=== PATIENT | female | born 1990 | race Caucasian/White ===

== ENCOUNTER 2020-02-21 10:22 | Outpatient (REF) | payer BC, SELFPAY ==
--- NOTE | 2020-02-21 09:45 | PAPFT_PTH ---
PATIENT: Joana Beaver LOC: [facility]#:[id number] AGE/SX: 29/F ROOM: RE02/21/[address]: Deidra Crump : 1990 BED: DIS: 02/21/2020 SPEC #: [id number] RECD: 02/22/20 12:49 STATUS: IRIS RELinda #: [id number] ESTHER: 02/21/20 09:[address]: Deidra Crump DEPT: [facility] Cytology RECD BY: Haley Najera ENTERED: 02/22/20 12:50 SP TYPE: PAPFT OTHR DR: Endy Giron Tissues: 1 - CX/ENDOCX FOR PAP SMEARS Procedures: PAP THIN PREP/UVM Screening HPV DNA PROBE Comments: [id number]
== END 2020-02-21 10:42 ==
LOC: NCHCN 10:22
PROVIDERS: PCP Internal Medicine; Visit Provider Nurse Practitioner Family
DX: Z12.4 Encounter for screening for malignant neoplasm of cervix (principal); Z11.51 Encounter for screening for human papillomavirus (HPV)
CPT/HCPCS: 88142; 87624

== ENCOUNTER 2020-03-07 14:35 | Outpatient (REF) | payer BC, SELFPAY ==
[2020-03-10 15:57] LABS: COVID-19 RT-PCR Result NEGATIVE (Negative)
== END 2020-03-07 14:55 ==
LOC: NCHCN 14:35
PROVIDERS: PCP Internal Medicine; Visit Provider Nurse Practitioner Family
DX: Z20.828 Contact with and (suspected) exposure to other viral communicable diseases (principal)
CPT/HCPCS: U0003

== ENCOUNTER 2020-08-29 09:35 | Outpatient (REF) | payer BC, SELFPAY | END 2020-08-29 09:36 | disposition home or self-care (01) | LOC: NCHCN 09:35 | PROVIDERS: PCP Internal Medicine; Visit Provider Nurse Practitioner Family | DX: N89.8 Other specified noninflammatory disorders of vagina (principal) | CPT/HCPCS: 87480; 87510; 87660 ==

== ENCOUNTER 2020-10-07 19:03 | Emergency (ER) | payer BC, SELFPAY ==
[2020-10-07] VITALS (20 sets, daily range): BP systolic 117–142; BP diastolic 60–98; PULSE 59–106; RESP 11–22; TEMP 36.9; O2SAT 95–99
--- NOTE | 2020-10-07 19:00 | RT.EKG_ITS ---
APPROVED REPORT Exam: Resting ECG Reason for Exam: chest pain Patient Location: E HR:88 bpm ECG Measurements Heart Rate 88 AXIS NM 194 P 256 QRSd 118 QRS -165 QT 411 T 54 QTc 498 Conclusion Atrial-ventricular dual-paced complexes...other complexes also detected Incomplete right bundle branch block...QRSd >112, terminal axis(90,270) Nonspecific ST depression...ST <-0.10mV, any [address] elevation, consider lateral injury...ST >0.10mV, I aVL V5 V6 Prolonged QT interval...QTc >495mS Underlying A-V paced rhythm present coupled with possible bigeminy versus junctional incomplete RBBB . One lone PVC. Prolong QT associated with paced rhythm. No STEMI
--- NOTE | 2020-10-07 19:30 | DI.RAD_ITS ---
Exam(s) XR CHEST 2V PA LATERAL EXAM: XR CHEST 2V PA LATERAL CLINICAL HISTORY: right chest pain TECHNIQUE: 2D digital imaging was performed. COMPARISON: No exams were available for comparison FINDINGS: MEDIASTINUM: Normal. HEART: Normal. PULMONARY VASCULATURE: Normal. LUNGS: Clear. PLEURAL SPACE: No pleural effusion or pneumothorax. BONE:Within normal limits for the patient's age. OTHER FINDINGS:Pacing device and leads are in the expected location. IMPRESSION: No acute pulmonary findings. DATA REPOSITORY: RADIATION DOSE DELIVERED:
[2020-10-07] MEDS: ACETAMINOPHEN 1,000 MG/100 ML BTL 400 MG IVPB (20:22)
--- NOTE | 2020-10-07 20:40 | DI.VRAD_ITS ---
PROCEDURE INFORMATION: Exam: XR Chest Exam date and time: 10/07/2020 7:42 PM Age: 30 years old Clinical indication: Right-sided; Patient HX: R sided chest pain TECHNIQUE: Imaging protocol: XR of the chest. Views: 2 views. COMPARISON: CT CHEST FOR PULMONARY EMBOLUS 02/03/2017 6:34 PM FINDINGS: Tubes, catheters and devices: Left chest pacemaker with dual chamber leads in expected position. Lungs: Unremarkable. No consolidation. Pleural spaces: Unremarkable. No pleural effusion. No pneumothorax. Heart/Mediastinum: Unremarkable. No cardiomegaly. Bones/joints: Unremarkable. IMPRESSION: No acute cardiopulmonary process. Dictated and Authenticated by: Sohan Maldonado MD. Ordering:GEETHA De Leon MD
[2020-10-07 20:47] LABS: Abs Immature Grans 0.03 10^3/uL (0.0-0.06); Absolute Basophil Count 0.06 10^3/uL (0.0-0.2); Absolute Eosinophil Count 0.25 10^3/uL (0.0-0.7); Absolute Lymphocyte Count 1.54 10^3/uL (1.2-3.4); Absolute Monocyte Count 0.43 10^3/uL (0.1-0.8); Absolute Neutrophil Count 4.18 10^3/uL (1.2-6.7); Basophils % 0.9; Eosinophils % 3.9; HCT 41.5 % (36.0-46.0); HGB 13.8 g/dL (11.2-15.7); Immature Grans % 0.5; Lymphocytes % 23.7; MCH 29.8 pg (27.0-33.0); MCHC 33.3 % (32.0-36.0); MCV 89.6 fL (80-95); MPV 11.1 fL (8.0-11.0); Monocytes % 6.6; Neutrophils % 64.4; Nucleated RBC 0 %; Platelet Count 301 10^3/uL (130-400); RBC 4.63 10^6/uL (3.93-5.22); RDW 11.9 % (11.7-14.6); RDW-SD 39.1 fL; WBC 6.49 10^3/uL (4.4-10.8)
[2020-10-07 21:01] LABS: ALT 31 U/L (14-59); AST 22 U/L (15-37); Albumin 3.7 g/dL (3.4-5.0); Alkaline Phosphatase 47 U/L (46-116); Anion Gap 11.5 mmol/L (3-11); BUN 9 mg/dL (7-18); Bilirubin, Total 0.2 mg/dL (0.2-1.0); CO2 26.5 mmol/L (21.0-32.0); CREATININE 0.8 mg/dL (0.55-1.02); Chloride 106 mmol/L (98-107); Glucose 86 mg/dL (74-106); Magnesium 2.1 mg/dL (1.8-2.4); Potassium 3.8 mmol/L (3.5-5.1); Sodium 144 mmol/L (136-145); Total Protein 7.5 g/dL (6.4-8.2)
[2020-10-07 21:02] LABS: Troponin I < 0.05 ng/mL (<0.06)
--- NOTE | 2020-10-07 21:34 | W.ED.GENAD ---
Discharge Plan Disposition Patient Disposition: HOME Condition: Stable Discharge Details Clinical Impression: Chest pain Primary Care Provider: Endy Giron ED Provider: Haley Logan Home Meds and New Rx's Prescriptions: No Action desogestrel-ethinyl estradiol [Apri] 1 EACH tablet 1 tab-cap PO DAILY Qty: 3 RF: 2 labetalol 200 MG tablet 200 mg PO BID RF: 0 Discharge Instructions Instructions: Chest Pain (ED) Additional Instructions: You are leaving AGAINST MEDICAL ADVICE, prior to your repeat EKG and troponin, you will be notified if your test is abnormal, I recommend a follow-up up with your traffic sign supervisor first thing on Friday and return immediately should you have any worsening complaints Discharge Data Discharge Date/Time-TO BE ENTERED AT DEPARTURE: 10/07/20 23:35 Medical Decision Making Patient has a heart score of 2, she has 2 - troponins mother she did refuse to stay for the second troponin given the extensive time she been in the emergency room, she technically left AGAINST MEDICAL ADVICE Initially EKG showed possible bigeminy which is curious as her repeat EKG in the absence of any discomfort exhibit normal sinus rhythm Her pacemaker interpretation was sent to [facility] She is currently asymptomatic and feels significantly improved, this was after no additional intervention She has a negative D-dimer, 2 - troponin, repeat EKG normal sinus rhythm, she is aware that she needs to call her traffic sign supervisor on Friday There is no evidence of significant ominous dysrhythmia noted throughout her evaluation she was observed on telemetry throughout this encounter EKG was interpreted by my attending physician, Dr. Alexander please see his documentation She is given very low threshold to return should she have new or worsening complaints Her electrolytes are stable for patient Blood pressure will need to be checked by primary care physician She is alert, oriented, of decisional capacity throughout the entirety of this evaluation Low suspicion for pulmonary embolism given lack of hypoxia and negative D-dimer without tachypnea Chest x-ray without evidence of widened mediastinum any pneumothorax or infiltrate, no obvious cough for patient discomfort noted per radiology interpretation in my review Electrolytes are reassuring, potassium and magnesium within normal limits, 2 - troponin and EKG normal sinus rhythm She will call her traffic sign supervisor on Friday She has already sent the interpretation from her pacemaker to her traffic sign supervisor she experienced during the event Medical Records Medical records reviewed: Yes I reviewed the patient's medical records. Lab Data Lab results reviewed: Yes I reviewed the patient's lab results. HPI General Mode of arrival: ambulatory. Date/Time Provider Initiated Documentation: 10/07/20 19:40. Limitations to Documentation: no limitations. Information obtained by: patient. 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 She states she had an episode yesterday at 530 while she was at rest. She states she was exerting herself all day. She denies any pain or discomfort with. She states episode lasted approximately 30 minutes last evening and then resolved on its own. She states today at 5 and she developed another episode of chest pain in the right side of her chest which radiates down her arm and into her back. She denies any fever or chills. She denies any tobacco use. She denies any history of hypertension or hyperlipidemia. Calf pain or swelling. Denies recent flights, surgeries, long drives. Denies family history of coronary artery disease. Took aspirin prior to arrival, 325. Had some nausea associated with pain that has since resolved. Denies any diaphoresis. Denies illicit drug use. Does not take exogenous hormones. States she has had similar episode in the past, but has been 10+ years. Related Data Home Medications Medication Instructions Recorded Confirmed labetalol 200 mg PO BID 06/11/13 10/07/20 desogestrel-ethinyl estradiol 1 tab-cap PO DAILY #3 pack 11/07/16 10/07/20 [Apri] Allergies Allergy/AdvReac Type Severity Reaction Status Date / Time Penicillins Allergy Unknown Unverified 10/07/20 19:17 General Stated Complaint: Chest Pain TIA: 2 Review of Systems All systems reviewed & are unremarkable except as noted in HPI and below [facility] Surgical History (Updated 01/14/18 @ 14:34 by [employer]) section (~2010) 2014 Family History Mother Long QT syndrome Sister Long QT syndrome Maternal Uncle Liver cancer maternal Cancer of kidney maternal Daughter Down syndrome Thyroid disorder Social History Smoking/Tobacco Use Status: Never Smoking risk assessment performed?: Yes Alcohol Intake: never Drug use: Never Do you feel safe at home: Yes Do you feel safe in your relationship?: Yes Exam Const General: healthy appearing and no acute distress Eyes Sclera: sclerae normal Chest Chest: normal inspection of the chest Resp Effort & Inspection: normal respiratory effort Auscultation: clear to auscultation bilaterally Cardio Rate: regular rate Rhythm: regular rhythm GI Other: No abdominal tenderness Skin General skin exam: no rashes or lesions noted Neuro General: patient alert, patient oriented x3 and CN's II-XI intact bilaterally Cranial Nerves: PERRL Gait: normal gait Extrem Other: Neurovascularly intact, no calf tenderness or swelling appreciated Course Vital Signs Vital signs: Vital Signs Temperature 36.9 C 10/07/20 19:11 Pulse 59 L 10/07/20 19:11 Respiratory Rate 16 10/07/20 19:11 Blood Pressure 142/98 H 10/07/20 19:11 Pulse Oximetry 99 10/07/20 19:11 Temperature 36.9 C 10/07/20 19:11 Pulse 70 10/07/20 20:53 Pulse 70 10/07/20 20:54 Respiratory Rate 17 10/07/20 20:54 Respiratory Effort Non-Labored 10/07/20 19:33 Respiratory Depth Normal 10/07/20 19:33 Respiratory Pattern Normal 10/07/20 19:33 Blood Pressure 117/75 10/07/20 20:53 Blood Pressure Mean 85 10/07/20 20:53 Blood Pressure Position Sitting 10/07/20 19:11 Pulse Oximetry 99 10/07/20 20:54 Oxygen Delivery Method Room Air 10/07/20 19:11 Oxygen Flow Rate 0 10/07/20 19:11 Pain Level 3 10/07/20 19:33 Lab/Test Results Lab/Test Results: Laboratory Tests Range/Units 10/07/20 10/07/20 19:35 19:35 WBC (4.4-10.8) 10^3/uL 6.49 RBC (3.93-5.22) 10^6/uL 4.63 Hgb (11.2-15.7) g/dL 13.8 Hct (36.0-46.0) % 41.5 MCV (80-95) fL 89.6 MCH (27.0-33.0) pg 29.8 MCHC (32.0-36.0) % 33.3 RDW (11.7-14.6) % 11.9 Plt Count (130-400) 10^3/uL 301 MPV (8.0-11.0) fL 11.1 H Immature Gran % 0.5 Neutrophils % 64.4 Lymphocytes % 23.7 Monocytes % 6.6 Eosinophils % 3.9 Basophils % 0.9 Nucleated RBC % % 0 Absolute Neutrophils (1.2-6.7) 10^3/uL 4.18 Absolute Lymphocytes (1.2-3.4) 10^3/uL 1.54 Absolute Monocytes (0.1-0.8) 10^3/uL 0.43 Absolute Eosinophils (0.0-0.7) 10^3/uL 0.25 Absolute Basophils (0.0-0.2) 10^3/uL 0.06 Sodium (136-145) mmol/L 144 Potassium (3.5-5.1) mmol/L 3.8 Chloride (98-107) mmol/L 106 Carbon Dioxide (21.0-32.0) mmol/L 26.5 Anion Gap (3-11) mmol/L 11.5 H BUN (7-18) mg/dL 9 Creatinine (0.55-1.02) mg/dL 0.8 Estimated GFR/1.73 m2 (mL/min/1.73m2) >= 60.00 Glucose (74-106) mg/dL 86 Calcium (8.5-10.1) mg/dL 9.0 Magnesium (1.8-2.4) mg/dL 2.1 Total Bilirubin (0.2-1.0) mg/dL 0.2 AST (15-37) U/L 22 ALT (14-59) U/L 31 Alkaline Phosphatase (46-116) U/L 47 Troponin I (<0.06) ng/mL < 0.05 Total Protein (6.4-8.2) g/dL 7.5 Albumin (3.4-5.0) g/dL 3.7
[2020-10-07 21:35] LABS: D-Dimer 396 ng/mlFEU (<500)
[2020-10-07 21:38] LABS: Bilirubin Negative (Negative); Blood Negative (Negative); Clarity Clear (Clear); Glucose Negative (Negative); Ketones Negative (Negative); Leukocyte Esterase Negative (Negative); Nitrite Negative (Negative)
--- NOTE | 2020-10-07 21:45 | RT.EKG_ITS ---
APPROVED REPORT Exam: Resting ECG Reason for Exam: chest pain Patient Location: E HR:70 bpm ECG Measurements Heart Rate 70 AXIS MT 191 P [id number] QRSd 77 QRS 77 QT 451 T 60 QTc 489 Conclusion Atrial-paced complexes...other complexes also detected I have reviewed and interpreted ECG and agree with software generated interpretation.
[2020-10-07 22:38] LABS: Troponin I < 0.05 ng/mL (<0.06)
== END 2020-10-07 23:35 | disposition home or self-care (01) ==
PROVIDERS: Emergency Provider Physician Assistant; PCP Internal Medicine
DX: R07.89 Other chest pain (principal); R11.0 Nausea; Z53.29 Procedure and treatment not carried out because of patient's decision for other reasons; Z95.0 Presence of cardiac pacemaker
CPT/HCPCS: 36415; 80053; 81025; 93005; 96365; 99285; 71046; 81003; 83735; 84484; 85025; 85379; 93010; J0131

== ENCOUNTER 2021-05-30 10:14 | Outpatient (CLI) | payer BC, SELFPAY ==
--- NOTE | 2021-05-30 10:00 | RT.EKG_ITS ---
APPROVED REPORT Exam: Resting ECG Reason for Exam: pacemaker, hx sudden cardiac in family Patient Location: O HR:72 bpm ECG Measurements Heart Rate 72 AXIS CA 184 P 60 QRSd 77 QRS 62 QT 427 T 35 QTc 468 Conclusion Atrial-paced complexes...other complexes also detected
== END 2021-05-30 10:15 | disposition home or self-care (01) ==
LOC: DI.CARD 10:15
PROVIDERS: PCP Internal Medicine; Visit Provider Internal Medicine Cardiovascular Disease
DX: R94.31 Abnormal electrocardiogram [ECG] [EKG] (principal); Z82.41 Family history of sudden cardiac death; Z95.0 Presence of cardiac pacemaker
CPT/HCPCS: 93010

== ENCOUNTER 2023-01-24 15:31 | Outpatient (REF) | payer BC, SELFPAY ==
[2023-01-24 15:18] LABS: ALT 25 U/L (14-59); AST 13 U/L (15-37); Albumin 3.9 g/dL (3.4-5.0); Alkaline Phosphatase 30 U/L (46-116); Anion Gap 7.1 mmol/L (3-11); BUN 9 mg/dL (7-18); Bilirubin, Total 0.4 mg/dL (0.2-1.0); C-Reactive Protein 0.17 mg/dL (0.0-0.3); CO2 25.9 mmol/L (21.0-32.0); CREATININE 0.7 mg/dL (0.55-1.02); Calcium 9.4 mg/dL (8.5-10.1); Chloride 106 mmol/L (98-107); Estimated GFR 117.04 (mL/min/1.73m2); Glucose 86 mg/dL (74-106); Lipase 27 U/L (16-77); Potassium 4.6 mmol/L (3.5-5.1); Sodium 139 mmol/L (136-145); Total Protein 6.9 g/dL (6.4-8.2)
== END 2023-01-24 15:32 | disposition home or self-care (01) ==
LOC: NCHCN 15:31
PROVIDERS: PCP Internal Medicine; Visit Provider Family Medicine
DX: I45.81 Long QT syndrome (principal); R10.9 Unspecified abdominal pain
CPT/HCPCS: 80053; 83690; 85025; 86140

== ENCOUNTER 2023-06-04 08:25 | Outpatient (CLI) | payer BC, SELFPAY ==
--- NOTE | 2023-06-04 08:15 | RT.EKG_ITS ---
APPROVED REPORT Exam: Resting ECG Reason for Exam: prolonged QT Patient Location: O HR:85 bpm ECG Measurements Heart Rate 85 AXIS SD 178 P 77 QRSd 76 QRS 58 QT 420 T 30 QTc 500 Conclusion Atrial-paced complexes...other complexes also detected Prolonged QT interval...QTc >495mS
== END 2023-06-04 08:26 | disposition home or self-care (01) ==
LOC: DI.CARD 08:26
PROVIDERS: PCP Internal Medicine; Visit Provider Internal Medicine Cardiovascular Disease
DX: R94.31 Abnormal electrocardiogram [ECG] [EKG] (principal); Z82.41 Family history of sudden cardiac death
CPT/HCPCS: 93010

== ENCOUNTER 2024-01-12 01:15 | Outpatient (CLI) | payer BC, SELFPAY ==
--- NOTE | 2024-01-12 | DI.MAMMO_ITS ---
Exam(s) MAMMO DIAGNOSTIC BI US BREAST LT LIMITED EXAM: MAMMO DIAGNOSTIC BI and U/S breast LT limited CLINICAL HISTORY: MASTODYNIA,LT BREAST PAIN,N64.4. TECHNIQUE: Craniocaudal and mediolateral oblique Full Field Digital Mammography views with Computer Aided Diagnosis followed by Tomosynthesis and left breast ultrasound. COMPARISON: This is a baseline examination. FINDINGS: Mammography/Tomosynthesis: Masses/Architectural Distortion: None seen. Microcalcifictions: No suspicious pleomorphic-type are seen. Skin Thickening/Nipple Retraction: None. Limited left breast US: Echotexture: Normal appearance of the glandular tissue. Shadowing: No suspicious foci. Cyst: None. Solid lesions: None seen. Ductal dilation: None. IMPRESSION: 1. No evidence of malignancy is noted. 2. Unless there is more urgent need, follow-up as per [place] [employer] guidelines. 3. The findings were discussed with the patient on the date of the examination. BI-RADS Category 1 - Negative Breast Density - Category B - Scattered areas of fibroglandular density Breast density Category C or D implies that the patient has dense breast tissue. Dense breast tissue can make it harder to find cancer on a mammogram. Dense breast tissue is also associated with an incr eased risk of breast cancer. This information about the result of the mammogram report was provided to the patient to raise their awareness. Use this report when you speak with the patient about their risks for breast cancer, which includes their family history. At that time, you may recommend additional screening tests (Ultrasoun d or MRI) as these tests may add significant information. A negative radiographic report should not delay biopsy if a dominant or clinically suspicious mass is present. Up to ten percent of cancers are not identified on mammography. A negative report may reinforce clinical impression. Adenosis and dense breasts may obscure an underlying neoplasm. False positive reports average 6 to 10%. Patient will receive a letter notifying them of these results.
== END 2024-01-12 01:35 ==
PROVIDERS: PCP Nurse Practitioner Family; Visit Provider Nurse Practitioner Family
DX: Z12.31 Encounter for screening mammogram for malignant neoplasm of breast (principal); N64.4 Mastodynia
CPT/HCPCS: 76642; 77062; 77066; G0279

== ENCOUNTER 2024-03-03 08:09 | Outpatient (CLI) | payer BC, SELFPAY ==
--- NOTE | 2024-03-03 08:00 | RT.EKG_ITS ---
APPROVED REPORT Exam: Resting ECG Reason for Exam: prolonged QT Patient Location: O HR:75 bpm ECG Measurements Heart Rate 75 AXIS GA 169 P 100 QRSd 75 QRS 59 QT 411 T 39 QTc 460 Conclusion Sinus rhythm...normal P axis, V-rate 50- 99 Borderline T abnormalities,
== END 2024-03-03 08:10 | disposition home or self-care (01) ==
LOC: DI.CARD 08:10
PROVIDERS: PCP Nurse Practitioner Family; Visit Provider Internal Medicine Cardiovascular Disease
DX: R94.31 Abnormal electrocardiogram [ECG] [EKG] (principal)
CPT/HCPCS: 93010

== ENCOUNTER 2025-01-04 13:02 | Outpatient (REF) | payer BC, SELFPAY ==
--- NOTE | 2025-01-04 12:15 | PAPFT_PTH ---
PATIENT: Joana Beaver LOC: [facility]#:[id number] AGE/SX: 34/F ROOM: RE01/04/[address]: Sherri Montgomery : 1990 BED: DIS: 01/04/2025 SPEC #: [id number] RECD: 01/04/25 17:48 STATUS: IRIS RELinda #: [id number] ESTHER: 01/04/25 12:[address]: Wen Khan DEPT: [facility] Cytology RECD BY: Haley Najera Tissues: 1 - CX/ENDOCX FOR PAP SMEARS Procedures: PAP THIN PREP/UVM Screening HPV DNA PROBE Comments: [id number] (HPV 16 & 18/45)
[2025-01-04 15:16] LABS: HCG Quant, Pregnancy 1 mIU/mL (1-3)
== END 2025-01-04 13:03 | disposition home or self-care (01) ==
LOC: NCHCN 13:02
PROVIDERS: PCP Nurse Practitioner Family; Visit Provider Nurse Practitioner Family
DX: N92.6 Irregular menstruation, unspecified (principal); Z12.4 Encounter for screening for malignant neoplasm of cervix
CPT/HCPCS: 88142; 84702; 87624